=== PATIENT | female | born 1960 | race Two or more races ===

== ENCOUNTER 2021-08-27 23:55 | Emergency (ER) | payer MEDICAID ==
[~2021-08-27] VITALS: Ht 162.6 cm; Wt 77.1 kg
[2021-08-28 00:36] VITALS: BP_SYST 108
[2021-08-28] MEDS ORDERED: CLINDAMYCIN HCL 150 MG CAPSULE PO ONE (01:00)
[2021-08-28] MEDS ORDERED: DIPH-TET-PERTUS Vaccine 0.5 ML VIAL (ADACEL) I.M. ONE (01:00)
[2021-08-28] MEDS ORDERED: traMADol HCL HCL 50 MG TABLET (ULTRAM) PO ONE (01:00)
[2021-08-28] MEDS ORDERED: CLIN300C12 PO (01:48)
[2021-08-28] MEDS ORDERED: TRAM50TA PO ×2 (01:48→01:54)
[2021-08-28] MEDS ORDERED: IBUP-1969 PO (01:54)
== END 2021-08-28 02:48 | disposition home or self-care (01) ==
LOC: SED 23:55
DX: L03.012 Cellulitis of left finger (principal); Z88.0 Allergy status to penicillin; Z79.899 Other long term (current) drug therapy
CPT/HCPCS: 73140-TC; 90715; 99283